=== PATIENT | male | born 1960 | race Caucasian/White ===

== ENCOUNTER → 2019-08-27 | Outpatient (CLI) | payer OTHER | LOC: CAT 15:30 | DX: Z13.6 Encounter for screening for cardiovascular disorders (principal); E78.00 Pure hypercholesterolemia, unspecified; I25.10 Atherosclerotic heart disease of native coronary artery without angina pectoris ==

== ENCOUNTER 2021-10-01 13:17 | Emergency (ER) | payer OTHER ==
[~2021-10-01] VITALS: Ht 170.2 cm; Wt 77.1 kg
[2021-10-01] MEDS ORDERED: NAPROSYN500 MG PO (14:46)
[2021-10-01 15:29] VITALS: BP 124/84
== END 2021-10-01 15:30 | disposition home or self-care (01) ==
LOC: ER 13:17
DX: S22.20XA Unspecified fracture of sternum, initial encounter for closed fracture (principal); W11.XXXA Fall on and from ladder, initial encounter; Y93.89 Activity, other specified; Y92.89 Other specified places as the place of occurrence of the external cause; Y99.8 Other external cause status